=== PATIENT | female | born 1995 | race Two or more races ===

== ENCOUNTER 2024-09-27 10:37 | Observation (INO) | payer MEDICAID, SELFPAY ==
[2024-09-27 10:45] VITALS: BMI 25.9
[2024-09-27 10:51] VITALS: BP 112/56; PULSE 75; PULSE 83; RESP 100; RESP 18; TEMP 36.3
[2024-09-27 11:23] LABS: ROM Kit Lot # 57807112; ROM Swab Mixed By: BARBE1; Swb Mxed in Solvent 1 min? Yes
[2024-09-27 11:25] LABS: Rupture of Fetal Membranes Negative (Negative)
[2024-09-27 12:05] VITALS: BP 116/56; PULSE 71
--- NOTE | 2024-09-27 12:18 | PC.NURSE ---
1216 discharge instructions reviewed, labor precautions, kick counts, copies given, pt agrees/understands.
== END 2024-09-27 12:17 | disposition home or self-care (01) ==
PROVIDERS: Admitting Provider Nurse Practitioner Women's Health; Visit Provider Obstetrics & Gynecology
DX: Z34.83 Encounter for supervision of other normal pregnancy, third trimester (principal); Z3A.39 39 weeks gestation of pregnancy
CPT/HCPCS: 59025; 59899; 84112

== ENCOUNTER 2024-09-28 20:39 | Inpatient (IN) | payer MEDICAID, SELFPAY ==
[2024-09-28] VITALS (45 sets, daily range): BP systolic 106–179; BP diastolic 53–77; PULSE 57–111; RESP 18–98; TEMP 36.6; O2SAT 92–100
--- NOTE | 2024-09-28 21:08 | PD.LDHP ---
Documentation for date of: 09/28/24 OB Labor/Induct. HPI History of Present Illness Chief complaint: Labor pains : 6 Para: 3 Term pregnancies: 3 pregnancies: 0 Living children: 2 History of Abortions: Spontaneous and Elective: 1 History of Vaginal deliveries: 3 History of sections: No PRAMOD: 10/04/24 Gestational Age (weeks): 39 Gestational Age (days): 1 History of present illness: This is a 29-year-old 6 para 3-0-2-2 with intrauterine at 39 weeks and 1 day who has care at [facility] who presents to labor and delivery complaining of labor pains and is noted to have contractions every 2 to 3 minutes with the cervix 5 cm dilated so she was admitted in active labor. Patient's care was uncomplicated. She had a maternal- medicine ultrasound at 20 weeks gestation which showed normal anatomy. Patient has a history of a child that at the age of 5 due to complications from a gastrointestinal malignancy. Patient reports normal movement. She denies any leaking or bleeding. History of Present Dating criteria: based on 1st trimester US only Adequate Care: Yes Ultrasounds: normal 1st trimester US and normal mid trimester US Obstetrical complications: none Medical complications: none Review of Systems Review of Systems Narrative Review of Systems: She denies any chest pain palpitations cough fever shortness of breath or lower extremity pain. She denies any headache change in vision or right upper quadrant pain. Past Medical History Past Medical History REPRODUCTIVE: Positive Previous Pregnancies Family History OTHER FAMILY HX: Mother has diabetes Son had gastrointestinal malignancy Surgical History SURGICAL: Negative Section Social History SOCIAL: Denies any alcohol drug use or smoking Meds Home Medications and Allergies Allergies Allergy/AdvReac Type Severity Reaction Status Date / Time No Known Allergies Allergy Verified 09/27/24 10:54 OB Exam Physical Exam Vital signs: Pulse BP 78 120/77 09/28/24 20:49 09/28/24 20:49 Routine HEENT Exam Comments: Oropharynx and sclera clear Routine Respiratory Exam Comments: Clear to auscultation bilaterally Routine Cardiovascular Exam Comments: Regular rate and rhythm Routine Abdominal Exam Comments: Gravid consistent with estimated weight 7 and half pounds Detailed Labor and Delivery Exam Dilation (cm): 5 Effacement (%): 80 station: -1 Presentation: Vertex Membranes: intact Routine Extremities Exam Comments: Nontender Routine Skin Exam Comments: No gross rashes or lesions Routine Neurological Exam Comments: No focal deficit OB Results Impressions Impression: Intrauterine at 39 weeks and 1 day Active labor Anticipate spontaneous vaginal delivery Informed consent was obtained Patient was made aware of the risk complication alternative benefits of operative vaginal delivery and delivery and agreed with these modes of delivery if indicated.
[2024-09-28] MEDS: METHYLERGONOVINE INJ 0.2 MG/ML VIAL IM (21:44)
--- NOTE | 2024-09-28 21:47 | PD.LDDS ---
DS: Providers Provider Date of admission: 09/28/24 21:25 Primary care physician: Physician No Primary/Family Admitting Provider: Ronaldo Romo MD Attending Provider on Admission: Ronaldo Romo MD Attending Provider on DC: Ronaldo Romo MD Discharging Provider: Ronaldo Romo MD DS: Diagnosis Discharge Diagnosis (1) Normal labor and delivery: Status: Acute (2) Uterine atony, , current hospitalization: Status: Acute Problem List Completed Was Problem List Reviewed/Reconciled?: Yes Summary/Hosp Course Brief History: This is a 29-year-old 6 para 3-0-2-2 with intrauterine at 39 weeks and 1 day who has care at [facility] who presents to labor and delivery complaining of labor pains and is noted to have contractions every 2 to 3 minutes with the cervix 5 cm dilated so she was admitted in active labor. Patient's care was uncomplicated. She had a maternal- medicine ultrasound at 20 weeks gestation which showed normal anatomy. Patient has a history of a child that at the age of 5 due to complications from a gastrointestinal malignancy. Patient reports normal movement. She denies any leaking or bleeding. Peripartum Data Delivery Method: Normal Vaginal Delivery Laceration Description: no complications: none Time Spent with Patient Time attestation: Total time spent providing and/or coordinating discharge services: Exam Vital Signs Pulse BP Pulse Ox 88 109/60 100 09/28/24 21:44 09/28/24 21:44 09/28/24 21:46 Discharge Plan Plan Patient Disposition: HOME (Self Care) Patient condition on transfer: Stable Prescriptions/Referrals Prescriptions/Med Rec: New ibuprofen 600 mg tablet 600 mg PO Q6H PRN (Reason: pain) Qty: 30 0RF Referrals: No Primary/Family,Physician [Primary Care Provider] - Patient/Caregiver Discharge Instructions Discharge Activity: activity as tolerated Other Discharge Activity Instructions:: Follow up office with [facility] within 6 weeks. Print Language: Macedonian Stand Alone Forms: Swathi Award Info., Patient Portal Info Letter Planned Discharge Date 09/30/24
[2024-09-28] MEDS: MISOPROSTOL 200 mCg TABLET 800 MCG PR (21:50)
[2024-09-28] MEDS: IBUPROFEN TAB 400 MG TABLET 800 MG PO (22:03)
[2024-09-28 22:07] LABS: Basophils % (Auto) 0 % (0-2.5); Eosinophils % (Auto) 0 % (0-10); Hematocrit 38.4 % (36.0-46.0); Immature Granulocytes % (Auto) 0 % (0-0); Immature Granulocytes Auto 0.03 Thou/mm3 (0.00-0.00); Lymphocytes # (Auto) 1.5 Thou/mm3 (1.0-4.8); Lymphocytes % (Auto) 21 % (10-50); Mean Corpuscular HGB Conc 33.9 g/dl (31.0-37.0); Mean Corpuscular Hemoglobin 28.5 pg (25.0-35.0); Mean Corpuscular Volume 84 fL (80-100); Monocytes # (Auto) 0.4 Thou/mm3 (0.0-0.8); Monocytes % (Auto) 6 % (0-12); Neutrophils # (Auto) 4.9 Thou/mm3 (1.8-7.7); Neutrophils % (Auto) 71 % (37-80); Nucleated Red Blood Cell % 0 /100 WBC (0); Platelet Count 193 Thou/mm3 (140-440); RDW Standard Deviation 42.5 fL (36.4-46.3); Red Blood Count 4.56 Miln/mm3 (4.00-5.20); White Blood Count 6.8 Thou/mm3 (3.6-11.0)
[2024-09-28] MEDS: Ampicillin Inj 2,000 MG in SODIUM CHLORIDE 0.9% (POP) 100 ML 200 MG IV (22:17)
[2024-09-29] VITALS (10 sets, daily range): BP systolic 95–107; BP diastolic 55–66; PULSE 56–74; RESP 16–18; TEMP 36.8–37; O2SAT 94–98; BMI 24.6
[2024-09-29 00:32] LABS: Syphilis Nonreactive (Nonreactive)
[2024-09-29 01:40] LABS: Basophils % (Auto) 0 % (0-2.5); Eosinophils % (Auto) 0 % (0-10); Hemoglobin 13.9 g/dL (12.0-16.0); Immature Granulocytes % (Auto) 1 % (0-0); Immature Granulocytes Auto 0.06 Thou/mm3 (0.00-0.00); Lymphocytes # (Auto) 1.2 Thou/mm3 (1.0-4.8); Lymphocytes % (Auto) 10 % (10-50); Mean Corpuscular HGB Conc 33.9 g/dl (31.0-37.0); Mean Corpuscular Hemoglobin 28.5 pg (25.0-35.0); Mean Corpuscular Volume 84 fL (80-100); Monocytes # (Auto) 0.7 Thou/mm3 (0.0-0.8); Monocytes % (Auto) 5 % (0-12); Neutrophils # (Auto) 10.8 Thou/mm3 (1.8-7.7); Neutrophils % (Auto) 84 % (37-80); Nucleated Red Blood Cell % 0 /100 WBC (0); Platelet Count 153 Thou/mm3 (140-440); Red Blood Count 4.87 Miln/mm3 (4.00-5.20); White Blood Count 12.8 Thou/mm3 (3.6-11.0)
--- NOTE | 2024-09-29 09:21 | PD.LDDELS ---
Data (Alaniz) Data Hx Section: No : 6 Para: 3 Term: 3 : 0 : 2 Delivery Data (Alaniz) Labor Data ROM Date: 09/28/24 ROM Time: 21:30 Rupture Type: SROM Amniotic Fluid: Clear Delivery Data EDC: 10/04/24 EDC calculated by:: ultrasound Labor Onset Stage 1 Date: 09/28/24 Labor Onset Stage 1 Time: 21:00 Labor Onset Stage 2 Date: 09/28/24 Labor Onset Stage 2 Time: 21:30 Delivery Date: 09/28/24 Delivery Time: 21:34 Gestational age (weeks): 39 Gestational age (days): 1 Placenta Delivery Date: 09/28/24 Placenta Delivery Time: 21:34 Delivered by: Ronaldo Romo Delivery nurse: Nilam Meredith Other staff at delivery: Nursery Nurse Other staff at delivery: 2nd Nurse Other staff at delivery: Nurse Other staff at delivery: Megan Cho Other staff at delivery: Megan Cho Other staff at delivery: brie fried Delivery Method Delivery: Vaginal Delivery Type: Spontaneous Presentation: Vertex Position: OA Anesthesia Type Primary Anesthesia: None Placenta Placenta Delivery: Spontaneous Placenta Cultures Obtained: No Placenta Sent for Examination: No Cord Sample: Cord Blood Obtained EBL Estimated blood loss (ml): 200 Additional Procedures None Complications Complications: None Data (Alaniz) Data Gender: Male Infant Weight Grams: 3660 1 Minute Total: 9 5 Minute Total: 9
--- NOTE | 2024-09-29 11:53 | ESPR_ITS ---
RE: JOHN BILLS : 1995 DATE OF SERVICE: 09/29/2024 S: day #1, the patient denies any problem or complaints. She is voiding. She is ambulating. She tolerating a regular diet. She is passing flatus. She denies any excessive vaginal bleeding. She denies any dizziness or lightheadedness. She denies any chest pain, palpitations, shortness of breath, or lower extremity pain. She denies any depression or anxiety. O: Vital Signs: Blood pressure 102/65, heart rate 56, respirations 18, temperature 98.5, and pulse ox 96% on room air. Lungs: Clear to auscultation bilaterally. Heart: Regular rate and rhythm. Abdomen: Fundus is firm, nontender. Extremities: Nontender. LABORATORY DATA: Hemoglobin pre-delivery is 13.0 and post delivery is 13.9. A: day #1, status post spontaneous vaginal delivery. P: Discharge home when baby is cleared. Discharge instructions given. Follow up in the office in 6 weeks. DT: 09:20:04 TT: 11:51:00 Ref: [id number] - TID: [id number] [facility]
[2024-09-30 00:08] VITALS: BP 103/63; PULSE 75; RESP 16; TEMP 36.7; O2SAT 98
[2024-09-30 04:09] VITALS: BP 100/61; PULSE 60; RESP 17; TEMP 36.7; O2SAT 98
[2024-09-30 08:45] VITALS: BP 105/65; PULSE 66; RESP 18; TEMP 36.6; O2SAT 98
[2024-09-30 15:00] VITALS: BP 100/65; PULSE 65; RESP 18; TEMP 36.7; O2SAT 97
--- NOTE | 2024-09-30 16:49 | PD.LDPPPRG ---
Subjective Subjective Interval history: Patient is a 29-year-old -0-0-4 day #2 status post vaginal delivery who would like to go home. She denies heavy vaginal bleeding or pain she has breast and bottlefeeding. Exam Vital Signs Temp Pulse Resp BP Pulse Ox O2 Del Method 98.0 F 65 18 100/65 97 Room Air 09/30/24 15:00 09/30/24 15:00 09/30/24 15:00 09/30/24 15:00 09/30/24 15:00 09/30/24 15:00 Narrative Exam Patient is dressed sitting in a chair alert and oriented x 3 in no apparent distress fundus firm Objective Labs 09/29/24 00:48 Assessment & Plan Problem List (1) Normal labor and delivery: Status: Acute (2) Uterine atony, , current hospitalization: Status: Acute (3) Term delivered: Problem details: Patient is doing well. Discharge home at this time. Discharge instructions given. Follow-up in 6 weeks. Status: Acute Time Spent With Patient Time: Total time spent is greater than 50% in coordination of care (as documented) at patient's floor/unit and/or counseling patient:
--- NOTE | 2024-09-30 16:52 | ESDS_ITS ---
DS: Providers Provider Date of admission: 09/28/24 21:25 Primary care physician: Physician No Primary/Family Admitting Provider: Ronaldo Romo MD Attending Provider on Admission: Ronaldo Romo MD Consults: 09/29/24 00:48 Referral Routine Comment: Attending Provider on DC: Jenelle [facility]br[facility] ([facility]) Discharging Provider: Jenelle Zambrano MD ([facility]) DS: Diagnosis Discharge Diagnosis (1) Term delivered: Status: Acute Problem List Completed Was Problem List Reviewed/Reconciled?: Yes Summary/Hosp Course Brief History: This is a 29-year-old 6 para 3-0-2-2 with intrauterine at 39 weeks and 1 day who has care at [facility] who presents to labor and delivery complaining of labor pains and is noted to have contractions every 2 to 3 minutes with the cervix 5 cm dilated so she was admitted in active labor. Patient's care was uncomplicated. She had a maternal- medicine ultrasound at 20 weeks gestation which showed normal anatomy. Patient has a history of a child that at the age of 5 due to complications from a gastrointestinal malignancy. Patient reports normal movement. She denies any leaking or bleeding. Peripartum Data Delivery Method: Normal Vaginal Delivery complications: none Status at Discharge Functional status at discharge: independent ambulation Overall status at discharge: patient is progressing back to baseline Time Spent with Patient Time attestation: Total time spent providing and/or coordinating discharge services: Time spent: Less than 30 minutes Specific discharge activities: No intercourse tampons douching for 6 weeks. No bathtubs for 6 weeks. Exam Vital Signs Temp Pulse Resp BP Pulse Ox O2 Del Method 98.0 F 65 18 100/65 97 Room Air 09/30/24 15:00 09/30/24 15:00 09/30/24 15:00 09/30/24 15:00 09/30/24 15:00 09/30/24 15:00 Narrative Exam Fundus firm nontender. Discharge Plan Plan Patient Disposition: HOME (Self Care) Disposition Comment: satble Patient condition on transfer: Stable Prescriptions/Referrals Prescriptions/Med Rec: New ibuprofen 600 mg tablet 600 mg PO Q6H PRN (Reason: pain) Qty: 30 0RF Referrals: No Primary/Family,Physician [Primary Care Provider] - Patient/Caregiver Discharge Instructions Discharge Activity: activity as tolerated Other Discharge Activity Instructions:: Follow up office with [facility] within 6 weeks. Hacer fadi el la [facility] con [place] doctor en 6 semanas Education Materials: After a Vaginal , Breast Care After , Incision Care After Vaginal Print Language: Gambian Activity Restrictions/Additional Instructions: Call with heavy vaginal bleeding, fevers 101.0 ?F or higher. Call for depression. Follow-up in 6 weeks. Pelvic rest x 6 weeks. Stand Alone Forms: Swathi Award Info., Patient Portal Info Letter Discharge Order Discharge Orders: Discharge (Routine); Ordered 09/30/24 Ordered By: Jenelle Zambrano ([facility]) Planned Discharge Date 09/30/24
== END 2024-09-30 17:09 | disposition home or self-care (01) | DRG 560 ==
LOC: S4SX 21:43 → S4NX 09-29 01:10
PROVIDERS: Admitting Provider Specialist; Visit Provider Specialist
DX: O62.2 Other uterine inertia (principal); Z3A.39 39 weeks gestation of pregnancy; Z37.0 Single live birth
CPT/HCPCS: 36415; 59409; 85025; 86780; 86850; 86900; 86901; 94762; J0290; J2210; S0191; A9270